=== PATIENT | male | born 1975 | race Two or more races ===

== ENCOUNTER 2017-01-25 01:21 | Emergency (ER) | payer OTHER ==
[~2017-01-25] VITALS: Ht 177.8 cm; Wt 94.4 kg
[2017-01-25 01:46] VITALS: BP 168/96
[2017-01-25] MEDS ORDERED: KETOROLAC TROMETH 60MG/2ML VIAL IM ONE (03:00)
== END 2017-01-25 03:55 | disposition home or self-care (01) ==
LOC: ER 01:22
DX: M77.9 Enthesopathy, unspecified (principal)
CPT/HCPCS: 73110; 96372; 99284; J1885

== ENCOUNTER 2017-08-11 01:49 | Emergency (ER) | payer OTHER ==
[~2017-08-11] VITALS: Ht 177.8 cm; Wt 99.5 kg
[2017-08-11 01:50] VITALS: BP 159/110
[2017-08-11] MEDS ORDERED: IBUPROFEN 600 MG TAB PO ONE ×2 (04:00→04:15)
== END 2017-08-11 04:47 | disposition home or self-care (01) ==
LOC: ER 01:50
DX: S86.911A Strain of unspecified muscle(s) and tendon(s) at lower leg level, right leg, initial encounter (principal); I10 Essential (primary) hypertension; X50.1XXA Overexertion from prolonged static or awkward postures, initial encounter; Y93.89 Activity, other specified; Y92.89 Other specified places as the place of occurrence of the external cause; Y99.8 Other external cause status
CPT/HCPCS: 29505; 73562